=== PATIENT | male | born 1975 ===

== ENCOUNTER 2019-09-29 12:38 | Emergency (ER) | payer OTHER ==
[2019-09-29 13:05] VITALS: BP 102/68
--- NOTE | 2019-09-29 13:06 | Event Note ---
ED Screening Note Date of service: 09/29/19 Time: 13:05 ED Screening Note: 44 y o male presents s/p dog bite to buttock today cc of pain and swelling to area tenant's pet dog This initial assessment/diagnostic orders/clinical plan/treatment(s) is/are subject to change based on patients health status, clinical progression and re- assessment by fellow clinical providers in the ED. Further treatment and workup at subsequent clinical providers discretion. Patient/guardian urged not to elope from the ED as their condition may be serious if not clinically assessed and managed. Initial orders include: acc eval
[2019-09-29] MEDS ORDERED: IBUPROFEN 600 MG TAB PO ONE (13:28)
[2019-09-29] MEDS ORDERED: TETANUS,DIPH,PERTUSS(ACELL) VACCINE 0.5 ML SYRINGE IM ONE (13:28)
[2019-09-29] MEDS ORDERED: AMOXICILLIN/K CLAV 875/125MG TAB PO ONE (13:28)
--- NOTE | 2019-09-29 13:31 | Emergency Department Report ---
ED Animal Bite HPI - General Chief Complaint: Animal Bite Stated Complaint: DOG BITE Time Seen by Provider: 09/29/19 13:25 Source: patient Mode of arrival: Ambulatory Limitations: No Limitations - History of Present Illness Initial Comments: Patient is a 44-year-old who comes to the ER after being bit by a family member's dog. Animal control has been called. They were checking on the immunization rabies status of the animal. Patient has a puncture wound to the right thigh. Unknown tetanus status. Denies other injury MD Complaint: animal bite -: Sudden, hour(s) Location: other Right: Leg Animal: dog Animal Control Notified: Yes Description: household pet Mechanism: bite Pain Description: sharp Associated Symptoms: erythema - Related Data Patient Tetanus UTD: No Previous Rx's Medication Instructions Recorded Last Taken Type Amoxicillin/Potassium Clav 1 each PO BID #20 tablet 09/29/19 Unknown Rx [Augmentin 875-125 Tablet] Allergies Allergy/AdvReac Type Severity Reaction Status Date / Time No Known Allergies Allergy Unverified 09/29/19 12:39 ED Review of Systems ROS: Stated complaint: DOG BITE Other details as noted in HPI Comment: All other systems reviewed and negative ED Past Medical Hx - Past Medical History Previous Medical History?: No - Surgical History Past Surgical History?: No - Social History Smoking Status: Current Some Day Smoker Substance Use Type: Alcohol - Medications Home Medications: Home Medications Medication Instructions Recorded Confirmed Last Taken Type Amoxicillin/Potassium Clav 1 each PO BID #20 tablet 09/29/19 Unknown Rx [Augmentin 875-125 Tablet] ED Physical Exam - General Limitations: No Limitations, Language Barrier General appearance: alert, in no apparent distress - Head Head exam: Present: atraumatic, normocephalic - Eye Eye exam: Present: normal appearance - ENT ENT exam: Present: mucous membranes moist - Neck Neck exam: Present: normal inspection - Respiratory Respiratory exam: Present: normal lung sounds bilaterally. Absent: respiratory distress - Cardiovascular Cardiovascular Exam: Present: regular rate, normal rhythm. Absent: systolic murmur, diastolic murmur, rubs, gallop - GI/Abdominal GI/Abdominal exam: Present: soft, normal bowel sounds - Rectal Rectal exam: Present: deferred - Extremities Exam Extremities exam: Present: normal inspection - Back Exam Back exam: Present: normal inspection - Neurological Exam Neurological exam: Present: alert, oriented X3 - Psychiatric Psychiatric exam: Present: normal affect, normal mood - Skin Skin exam: Present: warm, dry, normal color, other. Absent: rash ED Course Vital Signs 09/29/19 12:44 Temperature 97.9 F Pulse Rate 60 Respiratory 20 Rate Blood Pressure 102/68 O2 Sat by Pulse 99 Oximetry - Reevaluation(s) Reevaluation #1: 09/29/19 13:37 Wound to be cleaned and bandaged. Augmentin started. Tetanus given. Patient and son educated on post animal bite care. Will DC home with follow-up with animal control for rabies vaccination status. Patient and son verbalized understanding that if the animal is not up-to-date on rabies that they will need to follow-up for rabies vaccination. Critical care attestation.: If time is entered above; I have spent that time in minutes in the direct care of this critically ill patient, excluding procedure time. ED Disposition Clinical Impression: Animal bite Disposition: DC-01 TO HOME OR SELFCARE Is pt being admited?: No Does the pt Need Aspirin: No Condition: Stable Instructions: Animal Bite (ED) Additional Instructions: KEEP WOUND CLEAN AND DRY MED ORDERED TODAY UNTIL GONE MOTRIN OR TYLENOL FOR PAIN YOU GOT A TETANUS INJECTION TODAY FOLLOW UP WITH ANIMAL CONTROL--- IF THE DOG HAS NOT HAD RABIES VACCINE YOU WILL NEED TO GET RABIES SHOTS Prescriptions: Amoxicillin/Potassium Clav [Augmentin 875-125 Tablet] 1 each PO BID #20 tablet Referrals: TREE CHASE MD [Staff Physician] - 3-5 Days Time of Disposition: 13:29
== END 2019-09-29 13:47 | disposition home or self-care (01) ==
LOC: ED 12:38
DX: S71.131A Puncture wound without foreign body, right thigh, initial encounter (principal); F17.200 Nicotine dependence, unspecified, uncomplicated; Z79.2 Long term (current) use of antibiotics; W54.0XXA Bitten by dog, initial encounter; Y93.89 Activity, other specified; Y92.89 Other specified places as the place of occurrence of the external cause; Y99.8 Other external cause status
CPT/HCPCS: 90471; 90715; 99282; 99283